=== PATIENT | male | born 2000 | race Caucasian/White ===

== ENCOUNTER 2022-06-04 19:19 | Emergency (ER) | payer MEDICAID, SELFPAY ==
[2022-06-04 19:19] VITALS: BP 127/79; PULSE 71; RESP 17; TEMP 36.9; O2SAT 99; BMI 20.5
[2022-06-04 19:36] VITALS: BP 142/75; PULSE 88; RESP 14; TEMP 36.9; O2SAT 98
--- NOTE | 2022-06-04 19:39 | PC.NURSE ---
Patient has decided he does not want to be seen.
== END 2022-06-04 19:40 | disposition left against medical advice (07) ==
LOC: ER 19:49
PROVIDERS: Emergency Provider Emergency Medicine
DX: Z53.21 Procedure and treatment not carried out due to patient leaving prior to being seen by health care provider (principal)
CPT/HCPCS: 99211